=== PATIENT | female | born 1965 | race Caucasian/White ===

== ENCOUNTER → 2016-08-11 | Outpatient (CLI) | payer SELFPAY ==
--- NOTE | 2016-08-12 08:31 | US ---
EXAMINATION TYPE: US venous doppler duplex LE RT DATE OF EXAM: 08/11/2016 5:02 PM COMPARISON: No previous CLINICAL HISTORY: Z12.31 No Signs No Symptoms, R10.9 Abd Pain. Right leg pain and swelling following sun poisoning and 26 hour car ride SIDE PERFORMED: Right VESSELS IMAGED: External Iliac Vein (EIV) Common Femoral Vein Deep Femoral Vein Greater Saphenous Vein * Femoral Vein Popliteal Vein Small Saphenous Vein * Proximal Calf Veins (* superficial vessels) Right Leg: Appears negative for DVT IMPRESSION: No sonographic evidence of right lower extremity venous thrombosis.
== END | disposition home or self-care (01) ==
LOC: RADUSMAIN 16:39
PROVIDERS: ATTEND Family Medicine
DX: M79.89 Other specified soft tissue disorders (principal)